=== PATIENT | male | born 1955 | race African-American/Black ===

== ENCOUNTER → 2017-04-20 | Day surgery (SDC) | payer OTHER | END | disposition home or self-care (01) | LOC: FAS 06:26 | DX: Z12.11 Encounter for screening for malignant neoplasm of colon (principal); I10 Essential (primary) hypertension; Z90.49 Acquired absence of other specified parts of digestive tract; Z98.890 Other specified postprocedural states; Z79.899 Other long term (current) drug therapy | CPT/HCPCS: J2704 ==